=== PATIENT | male | born 1955 | race African-American/Black ===

== ENCOUNTER 2018-03-17 17:50 | Emergency (ER) | payer OTHER ==
[2018-03-17 18:44] LABS: Absolute Lymphocytes (CBC) 1.1 K/uL (0.7-4.9); Absolute Monocytes 0.8 K/uL (0.1-1.3); Absolute Neutrophil 3.5 K/uL (1.8-8.0); Basophils % 0.3 % (0-1.3); Eosinophils % 0.4 % (0-4.4); MCV 101.9 fL (80-100); MPV 9.8 fL (7.6-11.3); Monocytes % 15.4 % (3.3-12.3); RBC Red Blood Cell Count 4.22 M/uL (4.33-5.43)
[2018-03-17 18:56] LABS: Potassium 3.4 mEq/L (3.6-5.0)
[2018-03-17 19:02] LABS: Albumin 2.8 g/dL (3.2-5.5); Bilirubin Direct 0.9 mg/dL (0-0.2); Bilirubin Total 1.7 mg/dL (0.3-1.2); Protein, Total 9.1 g/dL (6.0-8.3)
[2018-03-17] MEDS ORDERED: AMLODIPINE 5 MG TAB ONE (19:27)
--- NOTE | 2018-03-17 19:51 | RAD REPORT ---
EXAM DESCRIPTION: CTAbdomen Pelvis W Contrast - 03/17/2018 7:41 pm CLINICAL HISTORY: Abdominal pain. COMPARISON: 12/05/2015 TECHNIQUE: Biphasic CT imaging of the abdomen and pelvis was performed with 100 ml non-ionic IV cont rast. All CT scans are performed using dose optimization technique as appropriate and may include automated exposure control or mA/KV adjustment according to patient size. FINDINGS: The lung bases are clear. Mild nodular hepatic contour is seen with mild fatty liver. The spleen, pancreas, adrenal glands and kidneys are within normal limits. Small benign bilateral renal cysts. No bowel obstruction, free air, free fluid or abscess. Thickening of the ileum with mild inflammatory changes seen. Mild thickening of the cecum and ascending colon also noted. The appendix is normal. S mall fat containing right inguinal hernia. No evidence of significant lymphadenopathy. Postoperative lower lumbar spine. IMPRESSION: Thickening and mild inflammatory changes involve the ileum, including the terminal ileum , as well as the cecum and ascending colon. This may indicate infectious colitis/ ileitis or possibly underlying inflammatory bowel disease.
[2018-03-17 19:53] LABS: Urine RBC NONE SEEN /HPF (NONE SEEN)
[2018-03-17 19:54] LABS: Urine Bacteria NONE SEEN /HPF (NONE SEEN); Urine Culture Reflex Order NOT NEEDED
[2018-03-17 20:00] LABS: Blood Morphology Comment NOT SEEN (NOT SEEN); Platelet Estimate DECR; Urine White Blood Cell Casts OK
[2018-03-17 20:05] LABS: Urine Blood NEGATIVE (NEG); Urine Glucose NEGATIVE (NEG); Urine Protein 1+ (NEG); Urine Specific Gravity 1.025 (1.005-1.030); Urine pH 5.5 (5.0-7.0)
[2018-03-17] MEDS ORDERED: NA CHLORIDE 0.9% 1,000 ML ONE (20:48)
[2018-03-17] MEDS ORDERED: metroNIDAZOLE 500 MG TABLET ONE (20:48)
[2018-03-17] MEDS ORDERED: CIPROFLOXACIN HCL 500 MG TAB ONE (20:48)
--- NOTE | 2018-03-17 20:55 | EDPHYS ---
Physician Documentation [facility] Name: Rajeev Waldron Jr Age: 62 yrs Sex: Male : 1955 Arrival Date: 03/17/2018 Time: 17:55 Bed 4 Private MD: ED Physician Viet Hunter HPI: 03/17 18:13 This 62 yrs old Black Male presents to ER via Ambulatory with complaints of Bloody snw Stools. 18:13 The patient presents to the emergency department with diarrhea, 9 times since the onset snw of symptoms. Onset: The symptoms/episode began/occurred suddenly, yesterday. Possible causes: unknown. The symptoms are aggravated by nothing. Associated signs and symptoms: The patient has no apparent associated signs or symptoms. Severity of symptoms: At their worst the symptoms were moderate. The patient has experienced a previous episode, last year. The patient has not recently seen a physician, and does not have an established primary care provider. Historical: - Allergies: 18:00 No Known Allergies; aj - Home Meds: 18:00 None [Active]; aj - PMHx: 18:00 None; aj - PSHx: 18:00 back; aj - Immunization history:: Adult Immunizations up to date. - Social history:: Smoking status: Patient/guardian denies using tobacco. ROS: 18:17 Constitutional: Negative for fever, chills, and weight loss, Eyes: Negative for injury, snw pain, redness, and discharge, ENT: Negative for injury, pain, and discharge, Neck: Negative for injury, pain, and swelling, Cardiovascular: Negative for chest pain, palpitations, and edema, Respiratory: Negative for shortness of breath, cough, wheezing, and pleuritic chest pain, Back: Negative for injury and pain, : Negative for injury, bleeding, discharge, and swelling, MS/Extremity: Negative for injury and deformity, Skin: Negative for injury, rash, and discoloration, Neuro: Negative for headache, weakness, numbness, tingling, and seizure. 18:17 Abdomen/GI: Positive for diarrhea. Exam: 18:17 Constitutional: This is a well developed, well nourished patient who is awake, alert, snw and in no acute distress. Head/Face: Normocephalic, atraumatic. Eyes: Pupils equal round and reactive to light, extra-ocular motions intact. Lids and lashes normal. Conjunctiva and sclera are non-icteric and not injected. Cornea within normal limits. Periorbital areas with no swelling, redness, or edema. ENT: Nares patent. No nasal discharge, no septal abnormalities noted. Tympanic membranes are normal and external auditory canals are clear. Oropharynx with no redness, swelling, or masses, exudates, or evidence of obstruction, uvula midline. Mucous membranes moist. Neck: Trachea midline, no thyromegaly or masses palpated, and no cervical lymphadenopathy. Supple, full range of motion without nuchal rigidity, or vertebral point tenderness. No Meningismus. Chest/axilla: Normal chest wall appearance and motion. Nontender with no deformity. No lesions are appreciated. Cardiovascular: Regular rate and rhythm with a normal S1 and S2. No gallops, murmurs, or rubs. Normal PMI, no JVD. No pulse deficits. Respiratory: Lungs have equal breath sounds bilaterally, clear to auscultation and percussion. No rales, rhonchi or wheezes noted. No increased work of breathing, no retractions or nasal flaring. Back: No spinal tenderness. No costovertebral tenderness. Full range of motion. Skin: Warm, dry with normal turgor. Normal color with no rashes, no lesions, and no evidence of cellulitis. MS/ Extremity: Pulses equal, no cyanosis. Neurovascular intact. Full, normal range of motion. Neuro: Awake and alert, GCS 15, oriented to person, place, time, and situation. Cranial nerves II-XII grossly intact. Motor strength 5/5 in all extremities. Sensory grossly intact. Cerebellar exam normal. Normal gait. Psych: Awake, alert, with orientation to person, place and time. Behavior, mood, and affect are within normal limits. 18:17 Abdomen/GI: Inspection: abdomen appears normal, Bowel sounds: normal, Palpation: mild abdominal tenderness, in the right upper quadrant, left upper quadrant, right lower quadrant and left lower quadrant. Vital Signs: 18:00 BP 196 / 97; Pulse 99; Resp 20; Temp 98.5; Pulse Ox 97% on R/A; Weight 105.69 kg; aj Height 6 ft. 0 in. (182.88 cm); Pain 0/10; 18:45 BP 194 / 96; Pulse 94; Resp 18 S; Pulse Ox 98% on R/A; Pain 0/10; aa5 21:00 BP 114 / 72; Pulse 94; Resp 18; Temp 98.6; Pulse Ox 99% on R/A; Pain 0/10; ak1 18:00 Body Mass Index 31.60 (105.69 kg, 182.88 cm) aj MDM: 18:20 Patient medically screened. snw 21:33 Data reviewed: vital signs, nurses notes. Data interpreted: Pulse oximetry: on room air snw is 99 %. Interpretation: normal. Counseling: I had a detailed discussion with the patient and/or guardian regarding: the historical points, exam findings, and any diagnostic results supporting the discharge/admit diagnosis, lab results, radiology results, the need for outpatient follow up, to return to the emergency department if symptoms worsen or persist or if there are any questions or concerns that arise at home. Special discussion: I have referred the patient to see his PCP for further evaluation of high blood pressure. Based on the history and exam findings, there is no indication for further emergent testing or inpatient evaluation. I discussed with the patient/guardian the need to see the maintenance mechanic elevators for further evaluation of the symptoms. I discussed with the patient/guardian the need to see the primary care provider for further evaluation of the symptoms. 03/17 18:06 Order name: Amylase, Serum; Complete Time: 19:44 snw 03/17 18:06 Order name: Basic Metabolic Panel; Complete Time: 19:44 snw 03/17 18:06 Order name: CBC with Diff; Complete Time: 20:20 snw 03/17 18:06 Order name: Creatinine for Radiology; Complete Time: 18:57 snw 03/17 18:06 Order name: Hepatic Function; Complete Time: 19:44 snw 03/17 18:06 Order name: Lipase; Complete Time: 19:44 snw 03/17 18:06 Order name: Urine Microscopic Only; Complete Time: 19:54 snw 03/17 18:06 Order name: TS; Complete Time: 20:29 snw 03/17 18:06 Order name: Blood Culture Adult (2) snw 03/17 18:06 Order name: CT Abd/Pelvis - W/Contrast; Complete Time: 19:53 snw 03/17 19:39 Order name: Urine Dipstick--Ancillary (enter results); Complete Time: 20:20 ss 03/17 20:00 Order name: CBC Smear Scan; Complete Time: 20:20 EDRI 03/17 18:06 Order name: IV Saline Lock; Complete Time: 18:49 snw 03/17 18:06 Order name: Labs collected and sent; Complete Time: 18:49 snw 03/17 18:06 Order name: Urine Dipstick-Ancillary (obtain specimen); Complete Time: 21:02 snw 03/17 20:21 Order name: Recheck B/P; Complete Time: 20:59 snw Administered Medications: 19:31 Drug: Norvasc 5 mg Route: PO; ak1 20:59 Follow up: Response: No adverse reaction ak1 20:58 Not Given (Patient Refused): NS 0.9% 1000 ml IV at 125 ml/hr continuous ak1 20:58 Drug: Flagyl 500 mg Route: PO; ak1 20:59 Follow up: Response: No adverse reaction ak1 20:59 Drug: Cipro 500 mg Route: PO; ak1 21:00 Follow up: Response: No adverse reaction ak1 Disposition: 03/18 07:29 Co-signature as Attending Physician, Viet Hunter MD. rn Disposition: 03/17/18 20:54 Discharged to Home. Impression: Infectious gastroenteritis and colitis, unspecified. - Condition is Stable. - Discharge Instructions: Food Choices to Help Relieve Diarrhea, Adult, Diarrhea, Hypertension, Viral Gastroenteritis. - Prescriptions for Flagyl 500 mg Oral Tablet - take 1 tablet by ORAL route every 8 hours for 10 days; 30 tablet. Zofran 4 mg Oral Tablet - take 1 tablet by ORAL route 2-3 times daily As needed; 20 tablet. Cipro 500 mg Oral Tablet - take 1 tablet by ORAL route every 12 hours for 7 days; 14 tablet. - Medication Reconciliation Form, Thank You Letter, Antibiotic Education, Prescription Opioid Use form. - Follow up: Private Physician; When: 1 - 2 days; Reason: Recheck today's complaints, Continuance of care, Re-evaluation by your physician. Follow up: Emergency Department; When: As needed; Reason: Worsening of condition. Signatures: Dispatcher [employer] [facility] Lila José RN RN aj Therrien, Shelly, COMMANDER POLICE RESERVES-C COMMANDER POLICE RESERVES-Csnw HunterViet MD MD rn Krenek, Amber RN RN ak1 Corrections: (The following items were deleted from the chart) 03/17 21:22 20:54 03/17/2018 20:54 Discharged to Home. Impression: Infectious gastroenteritis and ak1 colitis, unspecified. Condition is Stable. Forms are Medication Reconciliation Form, Thank You Letter, Antibiotic Education, Prescription Opioid Use. Follow up: Private Physician; When: 1 - 2 days; Reason: Recheck today's complaints, Continuance of care, Re-evaluation by your physician. Follow up: Emergency Department; When: As needed; Reason: Worsening of condition. snw
--- NOTE | 2018-03-17 20:55 | ER ---
Nurse's Notes [facility] Name: Rajeev Waldron Jr Age: 62 yrs Sex: Male : 1955 Arrival Date: 03/17/2018 Time: 17:55 Bed 4 Private MD: Diagnosis: Infectious gastroenteritis and colitis, unspecified Presentation: 03/17 17:59 Presenting complaint: Patient states: Bloody bowel movement x 10 that started last aj night. Patient denies dizziness. Transition of care: patient was not received from another setting of care. Onset of symptoms was March 16, 2018. Initial Sepsis Screen: Does the patient meet any 2 criteria? No. Patient's initial sepsis screen is negative. Does the patient have a suspected source of infection? No. Patient's initial sepsis screen is negative. Care prior to arrival: None. 17:59 Method Of Arrival: Ambulatory aj 17:59 Acuity: IRA 2 aj Triage Assessment: 18:00 General: Appears in no apparent distress. comfortable, Behavior is calm, cooperative, aj appropriate for age. Pain: Denies pain. Neuro: Level of Consciousness is awake, alert, obeys commands, Oriented to person, place, time, situation, Appropriate for age. Respiratory: Airway is patent Respiratory effort is even, unlabored, Respiratory pattern is regular, symmetrical. GI: Reports bloody stool. Derm: Skin is pink, warm \T\ dry. normal. Historical: - Allergies: 18:00 No Known Allergies; aj - Home Meds: 18:00 None [Active]; aj - PMHx: 18:00 None; aj - PSHx: 18:00 back; aj - Immunization history:: Adult Immunizations up to date. - Social history:: Smoking status: Patient/guardian denies using tobacco. Screenin:25 Abuse screen: Denies threats or abuse. Nutritional screening: No deficits noted. aa5 Tuberculosis screening: No symptoms or risk factors identified. Fall Risk None identified. Assessment: 18:25 General: Appears comfortable, Behavior is calm, cooperative. Pain: Denies pain. Neuro: aa5 Level of Consciousness is awake, alert, obeys commands, Oriented to person, place, time, situation. Cardiovascular: Heart tones S1 S2 present Rhythm is regular. Respiratory: Airway is patent Respiratory effort is even, unlabored, Respiratory pattern is regular, symmetrical. GI: Abdomen is obese, Bowel sounds present X 4 quads. Abd is soft and non tender X 4 quads. Reports bloody stool, Patient currently denies diarrhea, nausea, vomiting. : No signs and/or symptoms were reported regarding the genitourinary system. EENT: No signs and/or symptoms were reported regarding the EENT system. Derm: Skin is dry, Skin is normal, Skin temperature is warm. Musculoskeletal: Range of motion: intact in all extremities. 18:25 Reassessment: Pt finished drinking CT oral contrast. . aa5 Vital Signs: 18:00 BP 196 / 97; Pulse 99; Resp 20; Temp 98.5; Pulse Ox 97% on R/A; Weight 105.69 kg; aj Height 6 ft. 0 in. (182.88 cm); Pain 0/10; 18:45 BP 194 / 96; Pulse 94; Resp 18 S; Pulse Ox 98% on R/A; Pain 0/10; aa5 21:00 BP 114 / 72; Pulse 94; Resp 18; Temp 98.6; Pulse Ox 99% on R/A; Pain 0/10; ak1 18:00 Body Mass Index 31.60 (105.69 kg, 182.88 cm) ED Course: 17:55 Patient arrived in ED. sb2 18:00 Triage completed. aj 18:00 Arm band placed on left wrist. Patient placed in an exam room. aj 18:13 Laurence Zimmerman FNP-C is PHCP. sn 18:13 Viet Hunter MD is Attending Physician. snw 18:19 Amaris Vega RN is Primary Nurse. aa5 18:25 Patient has correct armband on for positive identification. Placed in gown. Bed in low aa5 position. Call light in reach. Side rails up X2. Pulse ox on. NIBP on. 18:30 Initial lab(s) drawn, by me, sent to lab. Inserted saline lock: 20 gauge in right aa5 antecubital area, using aseptic technique. Blood collected. 18:30 First set of blood cultures drawn by me. aa5 18:45 Second set of blood cultures drawn by me. aa5 18:53 No provider procedures requiring assistance completed. aa5 19:10 Report given to MARCELLO Adams. aa5 19:21 Radiology exam delayed due to lab results not completed at this time. (BUN/Creatinine). vr 19:36 CT completed. Patient moved to CT via wheelchair. Patient moved back from CT. vr 19:41 CT Abd/Pelvis - W/Contrast In Process Unspecified. EDMS 21:01 IV discontinued, intact, bleeding controlled, No redness/swelling at site. Pressure ak1 dressing applied. Administered Medications: 19:31 Drug: Norvasc 5 mg Route: PO; ak1 20:59 Follow up: Response: No adverse reaction ak1 20:58 Not Given (Patient Refused): NS 0.9% 1000 ml IV at 125 ml/hr continuous ak1 20:58 Drug: Flagyl 500 mg Route: PO; ak1 20:59 Follow up: Response: No adverse reaction ak1 20:59 Drug: Cipro 500 mg Route: PO; ak1 21:00 Follow up: Response: No adverse reaction ak1 Outcome: 20:54 Discharge ordered by . snw 21:01 Condition: good ak1 21:01 Discharge instructions given to patient, Instructed on discharge instructions, follow up and referral plans. no drinking with medication, no driving heavy equipment, medication usage, Demonstrated understanding of instructions, follow-up care, medications, Prescriptions given X 3. 21:01 Discharged to home ambulatory, with friend. ak1 21:22 Patient left the ED. ak1 Signatures: Dispatcher [employer] Lila Moeller RN RN aj Therrien, Shelly, MANAGER DIVISION-C MANAGER DIVISION-Csnw Amaris Vega RN RN aa5 Davis, Victoria vr Krenek, Amber, RN RN ak1 Maryan Abreu
[2018-03-17 21:28] VITALS: BP 114/72; TEMP 98.6; O2SAT 99
== END 2018-03-17 21:22 | disposition home or self-care (01) ==
LOC: ER 17:50
DX: A09 Infectious gastroenteritis and colitis, unspecified (principal)
CPT/HCPCS: 36415; 74177; 80048; 80076; 81003; 81015; 82150; 83690; 85025; 86850; 86900; 86901; 87040; 99284; J7030; Q9967